=== PATIENT | male | born 1990 | race Two or more races ===

== ENCOUNTER 2021-12-21 14:45 | Emergency (ER) | payer OTHER ==
[~2021-12-21] VITALS: Ht 180.3 cm; Wt 87.5 kg
[2021-12-21 16:21] VITALS: BP 131/87
[2021-12-21] MEDS ORDERED: IBUP800T27 PO (16:26)
== END 2021-12-21 16:46 | disposition home or self-care (01) ==
LOC: ER 14:45
DX: S16.1XXA Strain of muscle, fascia and tendon at neck level, initial encounter (principal); Z90.49 Acquired absence of other specified parts of digestive tract; Z79.1 Long term (current) use of non-steroidal anti-inflammatories (NSAID); X50.1XXA Overexertion from prolonged static or awkward postures, initial encounter; Y93.89 Activity, other specified; Y92.89 Other specified places as the place of occurrence of the external cause; Y99.8 Other external cause status
CPT/HCPCS: 72040

== ENCOUNTER 2021-12-24 10:04 | Emergency (ER) | payer OTHER ==
[~2021-12-24] VITALS: Ht 180.3 cm; Wt 83.0 kg
[~2021-12-24 10:04] MED LIST: IBUP800T27 PO
[2021-12-24 10:30] VITALS: BP 135/96
[2021-12-24] MEDS ORDERED: KETOROLAC TROMETH 60MG/2ML VIAL IM ONE (10:30)
[2021-12-24] MEDS ORDERED: CYCL-837 PO (10:50)
== END 2021-12-24 13:32 | disposition home or self-care (01) ==
LOC: ER 10:04
DX: S29.012A Strain of muscle and tendon of back wall of thorax, initial encounter (principal); S16.1XXA Strain of muscle, fascia and tendon at neck level, initial encounter; F12.10 Cannabis abuse, uncomplicated; X58.XXXA Exposure to other specified factors, initial encounter; Y93.89 Activity, other specified; Y92.89 Other specified places as the place of occurrence of the external cause; Y99.8 Other external cause status
CPT/HCPCS: 72070; 96372; 99283; J1885

== ENCOUNTER 2022-01-02 15:05 | Emergency (ER) | payer OTHER ==
[~2022-01-02] VITALS: Ht 180.3 cm; Wt 93.0 kg
[~2022-01-02 15:05] MED LIST changes: +CYCL-837 PO
[2022-01-02 15:37] VITALS: BP 124/82
[2022-01-02] MEDS ORDERED: KETOROLAC TROMETH 60MG/2ML VIAL IM ONE (15:45)
[2022-01-02] MEDS ORDERED: IBUP800T27 PO (15:50)
[2022-01-02] MEDS ORDERED: METH750T22 PO (15:50)
== END 2022-01-02 16:05 | disposition home or self-care (01) ==
LOC: ER 15:05
DX: S16.1XXA Strain of muscle, fascia and tendon at neck level, initial encounter (principal); X58.XXXA Exposure to other specified factors, initial encounter; Y93.89 Activity, other specified; Y92.89 Other specified places as the place of occurrence of the external cause; Y99.8 Other external cause status
CPT/HCPCS: 96372; 99283; J1885